=== PATIENT | male | born 1965 | race Hispanic/Latino ===

== ENCOUNTER 2017-10-27 13:17 | Inpatient (IN) | payer OTHER ==
[~2017-10-27] VITALS: Ht 170.2 cm; Wt 69.9 kg
[2017-10-27] MEDS ORDERED: ONDANSETRON HCL INJ 2 MG/ML VIAL IV STA (13:19)
[2017-10-27] MEDS ORDERED: SODIUM CHLORIDE 0.9% 1000ML 1,000 ML IV STA (13:19)
[2017-10-27] MEDS ORDERED: ASPIRIN 81 MG CHEW TAB PO ONE ×2 (13:30→18:00)
[2017-10-27] MEDS ORDERED: INSULIN REGULAR, HUMAN 100 UNIT/1 ML 3ML VIAL SQ ONE (13:45)
[2017-10-27 13:53] LABS: BASOPHILS # (AUTO) 0.1 (0.0-0.1); BASOPHILS % 0.5 % (0.0-1.0); EOSINOPHILS # (AUTO) 0.1 (0.0-0.4); EOSINOPHILS % 0.7 % (0.0-6.0); HEMATOCRIT 43.3 % (38.2-49.6); HEMOGLOBIN 15.5 g/dL (14.0-18.0); LYMPHOCYTES # (AUTO) 2.6 (1.0-3.2); LYMPHOCYTES % 20.4 % (18.0-39.1); MEAN CORPUSCULAR HGB CONC 35.8 g/dL (31-35); MEAN CORPUSCULAR VOLUME 92.3 fL (81-99); MONOCYTES # (AUTO) 0.8 (0.2-0.8); NEUTROPHILS # (AUTO) 9.2 (2.1-6.9); NEUTROPHILS % 72.2 % (38.7-80.0); PLATELET COUNT 164 x10e3/uL (140-360); RED BLOOD COUNT 4.69 x10e6/uL (4.3-5.7)
[2017-10-27 14:14] LABS: B-TYPE NATRIURETIC PEPTIDE2 16.8 pg/mL (0-100)
[2017-10-27 14:19] LABS: INR 1.08; PARTIAL THROMBOPLASTIN TIME 27.7 seconds (23.8-35.5); PROTHROMBIN TIME 13.2 seconds (11.9-14.5)
[2017-10-27 14:29] LABS: ALANINE AMINOTRANSFERASE 28 IU/L (0-55); ALBUMIN 3.9 g/dL (3.5-5.0); ALBUMIN/GLOBULIN RATIO 1.1 (0.8-2.0); ALKALINE PHOSPHATASE 155 IU/L (40-150); AMYLASE 31 U/L (25-125); ANION GAP 16.3 mmol/L (8-16); BLOOD UREA NITROGEN 19 mg/dL (7-26); BUN/CREATININE RATIO 20 (6-25); CALCIUM 9.8 mg/dL (8.4-10.2); CARBON DIOXIDE 24 mmol/L (22-29); CHLORIDE 102 mmol/L (98-107); CREATINE KINASE 44 IU/L (30-200); CREATININE, SERUM 0.96 mg/dL (0.72-1.25); EST GLOMERULAR FILTRATION RATE > 60 ML/MIN (60-); GLUCOSE 294 mg/dL (74-118); LIPASE 18 U/L (8-78); POTASSIUM 4.3 mmol/L (3.5-5.1); SODIUM 138 mmol/L (136-145)
[2017-10-27 14:36] LABS: BILIRUBIN,URINE NEGATIVE (NEGATIVE); CLARITY,URINE SL CLOUDY (CLEAR); COLOR,URINE YELLOW (YELLOW); KETONES,URINE NEGATIVE (NEGATIVE); LEUKOCYTE ESTERASE ,URINE NEGATIVE (NEGATIVE); NITRITE,URINE NEGATIVE (NEGATIVE); PROTEIN,URINE DIPSTICK 2+ (NEGATIVE); URINE UROBILINOGEN 1 mg/dL (0.2 - 1)
[2017-10-27] MEDS ORDERED: DIATRIZOATE MEGL/DIATRIZOA SOD 30 ML BTL PO ONE (14:43)
[2017-10-27 14:49] LABS: THYROID STIMULATING HORMONE 1.261 uIU/mL (0.350-4.940)
[2017-10-27 14:53] LABS: EPITHELIAL CELLS,URINE MODERATE /LPF
--- NOTE | 2017-10-27 15:04 | Diagnostic Imaging Report ---
EXAMINATION: CHEST SINGLE (PORTABLE) INDICATION: Pain, fever COMPARISON: None FINDINGS: TUBES and LINES: None. LUNGS: Lungs are well inflated. Lungs are clear. There is no evidence of pneumonia or pulmonary edema. PLEURA: No pleural effusion or pneumothorax. HEART AND MEDIASTINUM: The cardiomediastinal silhouette is unremarkable. BONES AND SOFT TISSUES: No acute osseous lesion. Soft tissues are unremarkable. UPPER ABDOMEN: No free air under the diaphragm. IMPRESSION: No acute thoracic abnormality. Signed by: Dr. Srinivasa Orellana M.D. on 10/27/2017 3:01 PM
[2017-10-27] MEDS ORDERED: DONNATAL/LIDOCAINE/MAALOX 30 ML SUSP PO SCH (15:15)
[2017-10-27] MEDS ORDERED: LIDOCAINE VISC 2% SOLN 15 ML UDC ONE (15:57)
[2017-10-27] MEDS ORDERED: BELLADONNA ALK/PHENOBARBITAL 5 ML UDC ONE (15:57)
--- NOTE | 2017-10-27 17:09 | Diagnostic Imaging Report ---
EXAM: CT Abdomen and Pelvis WITH contrast INDICATION: Diverticulitis COMPARISON: None. TECHNIQUE: Abdomen and pelvis were scanned utilizing a multidetector helical scanner from the lung base to the pubic symphysis after administration of IV contrast. Coronal and sagittal reformations were obtained. Routine protocol was performed. Scan was performed when during portal venous phase. IV CONTRAST: 100 mL of Isovue-370 ORAL CONTRAST: Water RADIATION DOSE: Total DLP: 341.92 mGy*cm Estimated effective dose: (DLP x 0.015 x size factor) mSv COMPLICATIONS: None FINDINGS: LINES and TUBES: None. LOWER THORAX: Unremarkable HEPATOBILIARY: No focal hepatic lesions. No biliary ductal dilation. GALLBLADDER: No radio-opaque stones or sludge. No wall thickening. SPLEEN: No splenomegaly. PANCREAS: No focal masses or ductal dilatation. ADRENALS: Large heterogeneous in density septated cystic right adrenal mass measuring 6.4 cm in largest dimension abutting the posterior wall of the intrahepatic IVC, with mass effect on the upper pole of the right kidney and minimal mass effect on the most distal right renal vein . The left adrenal gland is normal. KIDNEYS/URETERS: Kidneys enhance symmetrically. No hydronephrosis. No cystic or solid mass lesions. No stones. GI TRACT: No abnormal distention, wall thickening, or evidence of bowel obstruction. Appendix is mildly prominent but there are no other findings to suggest appendicitis. PELVIC ORGANS/BLADDER: Unremarkable. LYMPH NODES: No lymphadenopathy. VESSELS: Unremarkable. PERITONEUM / RETROPERITONEUM: No free air or fluid. BONES: Unremarkable. SOFT TISSUES: Unremarkable. IMPRESSION: 1. Right adrenal cystic mass measuring 6.4 cm in largest dimension has a broad differential diagnosis including lymphangiomatous cyst, hemangioma, involving hemorrhagic adrenal mass, less likely a metastasis, pheochromocytoma or adrenal cortical carcinoma. Regardless of the differential, a oncologic surgical consult is recommended Signed by: Dr. Srinivasa Orellana M.D. on 10/27/2017 5:05 PM
[2017-10-27] MEDS ORDERED: NITROGLYCERIN 0.4 MG SUBL SL PRN (18:00)
[2017-10-27] MEDS ORDERED: DEXTROSE 50% SYRINGE 50 ML IV PRN (18:00)
[2017-10-27] MEDS ORDERED: ONDANSETRON HCL INJ 2 MG/ML VIAL IV PRN (18:00)
[2017-10-27] MEDS ORDERED: SODIUM CHLORIDE FLUSH 10 ML SYR INJ PRN (18:00)
[2017-10-27] MEDS ORDERED: SODIUM CHLORIDE 0.9% 50ML 50 ML ONE (18:14)
[2017-10-27] MEDS ORDERED: IOPAMIDOL 370 MG/ML 200 ML INFUS..BTL INJ ONE (18:14)
[2017-10-27] MEDS: FAMOTIDINE 20 MG TAB PO SCH (18:58)
[2017-10-27] MEDS ORDERED: METFORMIN HCL500 MG PO (20:03)
[2017-10-27] MEDS ORDERED: METHOCARBAMOL500 MG PO (20:03)
[2017-10-27] MEDS ORDERED: LANTUS 3ML100 UNITS/ SQ ×2 (20:03)
[2017-10-27] MEDS ORDERED: GLYBURIDE5 MG PO (20:03)
[2017-10-27 20:51] VITALS: BP 121/79
[2017-10-27] MEDS: INSULIN REGULAR, HUMAN 100 UNIT/1 ML 3ML VIAL SQ SCH (21:00)
[2017-10-27 22:52] VITALS: BP 121/79
[2017-10-28] VITALS (7 sets, daily range): BP systolic 92–141; BP diastolic 50–88
[2017-10-28] MEDS: FAMOTIDINE 20 MG TAB PO SCH (05:38)
[2017-10-28 08:00] LABS: CREATINE KINASE MB 0.9 ng/mL (0-5.0)
[2017-10-28 08:21] LABS: CHOL/HDL RATIO 4.3 (3.9-4.7)
[2017-10-28] MEDS: ASPIRIN 81 MG ENTERIC COATED PO SCH (08:34)
[2017-10-28] MEDS: PANTOPRAZOLE SOD 40 MG TABEC PO SCH (08:35)
[2017-10-28] MEDS: INSULIN REGULAR, HUMAN 100 UNIT/1 ML 3ML VIAL SQ SCH ×4 (08:36→21:00)
--- NOTE | 2017-10-28 08:58 | History and Physical ---
PRIMARY CARE PHYSICIAN: CHIEF COMPLAINT: Abdominal pain. HISTORY OF PRESENT ILLNESS: This is a 52-year-old man who developed epigastric discomfort, described as pressure, radiating up the chest to the throat and then ears, unable to see his primary care doctor, therefore came to the hospital. Here, patient was evaluated in the emergency room. Cardiac enzyme was negative. CT scan showed incidental finding of right adrenal mass. Patient is admitted for further evaluation and management. PAST MEDICAL HISTORY: Diabetes mellitus type 2. PAST SURGICAL HISTORY: Knee, finger, and elbow. ALLERGIES: PER ELECTRONIC MEDICAL RECORD. FAMILY/SOCIAL HISTORY: Patient is . He has 1 child. No alcohol or illicits. He smokes about 2 cigarettes per day. MEDICATIONS: Per electronic medical record. REVIEW OF SYSTEMS: Denies any dizziness, fever, chills, sweats, nausea, vomiting, diarrhea. PHYSICAL EXAMINATION: VITAL SIGNS: Have been reviewed. GENERAL APPEARANCE: Tired-appearing man resting in bed. HEENT: Anicteric. CARDIOVASCULAR: Normal S1 and S2. LUNGS: Moderate breath sounds. ABDOMEN: Soft, nondistended. He has epigastric tenderness. EXTREMITIES: No edema or calf tenderness. NEUROLOGICAL: Alert and appropriate. Moving all extremities. SKIN: Dry. PSYCHIATRIC: Flat affect. LABS: Reviewed. MEDICATIONS: Reviewed. ASSESSMENT AND PLAN: A 52-year-old man. 1. Epigastric discomfort. May have gastritis or gastrointestinal related disease. Will put him on pantoprazole and sucralfate. He will need endoscopy at some point. 2. Rule out acute coronary syndrome. His electrocardiogram has been reviewed and is normal sinus rhythm. He does have periods of hypotension. His cardiac enzymes were negative x3. Will obtain a lipid panel. 3. Right adrenal mass. This is incidental finding. Patient is asymptomatic in that regard. Will obtain a metanephrine. Consult endocrinology, and may need surgical resection of this mass, but for this endocrinology needs to evaluate things like pheochromocytoma or other pathology. 4. Dyspepsia. Use proton pump inhibitor. 5. Diabetes mellitus type 2. Obtain hemoglobin A1c and lipid panel. 6. Prophylaxis. Use sequential compression devices and proton pump inhibitor. Job#: [id number]
[2017-10-28] MEDS: SUCRALFATE 1 GM TAB PO SCH ×3 (12:34→20:51)
--- NOTE | 2017-10-28 13:01 | Consultation ---
DATE OF CONSULTATION: October 28, 2017 CHIEF COMPLAINT: Abdominal pain. HISTORY OF PRESENT ILLNESS: This patient is a 52-year-old male who was in good health until approximately a week ago when he experienced epigastric pain radiating up the chest and right neck and face area. The patient has also intractable vomiting. He had no history of fatty food intolerance or diarrhea or chills. PAST MEDICAL HISTORY: Positive for diabetes type 2. SURGICAL HISTORY: Positive for left upper extremity and left knee surgery. ALLERGIES: No drug allergies. SOCIAL HABITS: He is a smoker but denied alcohol abuse. REVIEW OF SYSTEMS: No chest pain or shortness of breath or cough at present time. No back pain. PHYSICAL EXAMINATION VITAL SIGNS: Stable. Afebrile. GENERAL: He is awake, alert, in no apparent distress. HEENT: Sclera anicteric. NECK: Supple. LUNGS: Clear. HEART: Regular rate and rhythm. ABDOMEN: Soft with mild guarding in epigastrium with no rebound tenderness. EXTREMITIES: Without cyanosis, edema. LABS: The patient's white cell count is 13 with hemoglobin of 15 and creatinine of 0.9. Alkaline phosphatase 155, bilirubin of 0.8. CT of the abdomen revealed a 6.4 cm septated cystic right adrenal mass. No gallstones or bowel thickening. ASSESSMENT: Right renal mass of unknown etiology. PLAN: Continue workup for pheo and neoplastic etiology. Will follow patient and intervention as indicated. Job#: [id number] ALFONSO
--- NOTE | 2017-10-28 14:12 | Consultation ---
DATE OF CONSULTATION: ENDOCRINE CONSULTATION NO DICTATION, LENGTH 0:6 Job#: [id number] DOMENIC
[2017-10-28 16:49] LABS: FREE T4 (FREE THYROXINE) 0.87 ng/dL (0.9-1.8); THYROID STIMULATING HORMONE 1.485 uIU/mL (0.350-4.940)
[2017-10-28] MEDS ORDERED: INSULIN DETEMIR 100 UNIT/ML PEN SQ SCH (21:00)
[2017-10-29] VITALS (7 sets, daily range): BP systolic 106–126; BP diastolic 65–78
[2017-10-29] MEDS: SUCRALFATE 1 GM TAB PO SCH ×4 (09:05→20:42)
[2017-10-29] MEDS: ASPIRIN 81 MG ENTERIC COATED PO SCH (09:05)
[2017-10-29] MEDS: PANTOPRAZOLE SOD 40 MG TABEC PO SCH (09:05)
[2017-10-29] MEDS: INSULIN REGULAR, HUMAN 100 UNIT/1 ML 3ML VIAL SQ SCH ×3 (09:11→17:59)
--- NOTE | 2017-10-29 13:03 | Progress Note ---
DATE: October 29, 2017 MEDICINE PROGRESS NOTE TIME OF SERVICE: 7:30 a.m. SUBJECTIVE: Overnight no events. REVIEW OF SYSTEMS: Denies any dizziness, chest pain. VITAL SIGNS: Reviewed. PHYSICAL EXAMINATION GENERAL APPEARANCE: A tired-appearing man resting in bed. HEENT: Anicteric. CARDIOVASCULAR: Normal S1/S2. No murmurs. ABDOMEN: Soft. Mild tenderness in the epigastrium. Flanks nontender. EXTREMITIES: No edema. SKIN: Dry. PSYCHIATRIC: Flat affect. LABS: Reviewed. MEDICATIONS: Reviewed. ASSESSMENT: A 52-year-old man. 1. Epigastric discomfort. 2. Right adrenal mass. 3. Dyspepsia. 4. Diabetes mellitus type 2. PLAN 1. Hemoglobin A1c 10.5, LDL 122, triglyceride 86. 2. Plasma metanephrine and normetanephrines are pending. 3. Follow up endocrinology recommendation. 4. Surgery on board. Job#: [id number] EV
[2017-10-29] MEDS: GLIMEPIRIDE 2 MG TAB PO SCH (17:59)
[2017-10-29] MEDS ORDERED: INSULIN DETEMIR 100 UNIT/ML PEN SQ SCH (21:00)
[2017-10-30] VITALS (9 sets, daily range): BP systolic 113–123; BP diastolic 58–66
[2017-10-30] MEDS: INSULIN REGULAR, HUMAN 100 UNIT/1 ML 3ML VIAL SQ SCH ×5 (07:30→20:30)
[2017-10-30 07:50] LABS: BASOPHILS # (AUTO) 0.1 (0.0-0.1); BASOPHILS % 0.6 % (0.0-1.0); EOSINOPHILS # (AUTO) 0.1 (0.0-0.4); EOSINOPHILS % 0.8 % (0.0-6.0); HEMOGLOBIN 13.8 g/dL (14.0-18.0); LYMPHOCYTES # (AUTO) 1.7 (1.0-3.2); MEAN CORPUSCULAR HEMOGLOBIN 33.4 pg (28-32); MEAN CORPUSCULAR HGB CONC 35.4 g/dL (31-35); MEAN CORPUSCULAR VOLUME 94.4 fL (81-99); MONOCYTES # (AUTO) 0.5 (0.2-0.8); MONOCYTES % 6.4 % (4.4-11.3); NEUTROPHILS # (AUTO) 6.1 (2.1-6.9); PLATELET COUNT 186 x10e3/uL (140-360); RED BLOOD COUNT 4.13 x10e6/uL (4.3-5.7); RED CELL DISTRIBUTION WIDTH 12.1 % (11.7-14.4)
[2017-10-30] MEDS: GLIMEPIRIDE 2 MG TAB PO SCH ×2 (08:11→16:49)
[2017-10-30] MEDS: SUCRALFATE 1 GM TAB PO SCH ×4 (08:11→21:00)
[2017-10-30] MEDS: ASPIRIN 81 MG ENTERIC COATED PO SCH (08:11)
[2017-10-30] MEDS: PANTOPRAZOLE SOD 40 MG TABEC PO SCH (08:11)
[2017-10-30] MEDS ORDERED: INSULIN DETEMIR 100 UNIT/ML PEN SQ SCH (21:00)
[2017-10-31] VITALS: BP 120/58
[2017-10-31 04:00] VITALS: BP 119/56
[2017-10-31 07:53] VITALS: BP 110/60
[2017-10-31] MEDS: SUCRALFATE 1 GM TAB PO SCH ×3 (09:07→16:30)
[2017-10-31] MEDS: PANTOPRAZOLE SOD 40 MG TABEC PO SCH (09:07)
[2017-10-31] MEDS: GLIMEPIRIDE 2 MG TAB PO SCH ×2 (09:12→17:00)
[2017-10-31] MEDS: ASPIRIN 81 MG ENTERIC COATED PO SCH (09:12)
[2017-10-31] MEDS: INSULIN REGULAR, HUMAN 100 UNIT/1 ML 3ML VIAL SQ SCH ×3 (09:13→15:29)
[2017-10-31 10:23] VITALS: BP 110/60
[2017-10-31 11:49] VITALS: BP 120/68
[2017-10-31 15:56] VITALS: BP 114/62
[2017-10-31] MEDS ORDERED: AMARYL4 MG PO (17:04)
--- NOTE | 2017-11-01 07:13 | Progress Note ---
DATE: October 30, 2017 TIME OF SERVICE: 7:00 a.m. PROGRESS NOTE Overnight, no events. REVIEW OF SYSTEMS: Denies any dizziness. PHYSICAL EXAMINATION VITAL SIGNS: Reviewed. GENERAL: A tired-appearing man resting in bed. HEENT: Anicteric. CARDIOVASCULAR: Normal S1/S2. Without murmurs. ABDOMEN: Soft, nontender. EXTREMITIES: No edema. SKIN: Dry. PSYCHIATRIC: Normal affect. LABS: Reviewed. MEDICATIONS: Reviewed. ASSESSMENT: A 52-year-old man. 1. Epigastric discomfort. 2. Right adrenal mass. 3. Dyspepsia. 4. Diabetes mellitus, type 2. Hemoglobin A1c 10.5, low-density lipoprotein 122. PLAN 1. Follow up metanephrines. 2. Continue pain control. 3. Follow up with Dr. Skelton and surgical team. Job#: [id number] CQ
--- NOTE | 2017-11-01 11:13 | Discharge Summary ---
PRINCIPAL DIAGNOSES 1. Right adrenal mass. 2. Epigastric discomfort. 3. Dyspepsia. 4. Diabetes mellitus, type 2. Hemoglobin A1c 10.5, low-density lipoprotein 122, triglyceride 86. SECONDARY DIAGNOSIS: Diabetes mellitus, type 2. CHIEF COMPLAINT: Abdominal pain. HISTORY OF PRESENT ILLNESS: A 52-year-old man with abdominal pain. Please refer to H and P for further details. HOSPITAL COURSE: Patient with the right adrenal mass. Endocrinology studies were initiated. Results are still pending. He had dyspepsia, diabetes mellitus, type 2. Surgery was deferred until the endocrinology studies were completed. Metanephrines and normetanephrines. He will follow up outpatient for further care. DISCHARGE MEDICATION: Per electronic medical record. FOLLOWUP 1. With primary care doctor in [address] Skelton in 1 week and possible surgical team thereafter. WILLY ALBERTS MD Job#: [id number] CQ
--- OUTSIDE RECORDS SUMMARY | 2018-02-12 13:11 | XMS REPORT ---
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 Allergies, Adverse Reactions, Alerts This patient has no known allergies or adverse reactions. Medications This patient has no known medications. Results Test Description Test Time Test Comments Text Results Atomic Results Result Comments CHEST SINGLE (PORTABLE) 2017-11-24 13:56:[address] [address] Patient Name: SRINIVASA DÍAZ MR #: [id number] : 1965 Age/Sex: 52/M Req #: [id number] Adm Physician: Ordered by: TRINITY DELGADO SILVERWARE CLEANER Report #: [id number] Location: ER Room/Bed: ___ Procedure: [id number] DX/CHEST SINGLE (PORTABLE) Exam Date: 11/24/17 Exam Time: 1335 REPORT STATUS: Signed EXAMINATION: CHEST SINGLE (PORTABLE) INDICATION: S chest pain, hypertension COMPARISON: Chest x-ray 10/27/2017 FINDINGS: AP view TUBES and LINES: None. LUNGS: Lungs are not well inflated. Lungs are clear. There is no evidence of pneumonia or pulmonary edema. PLEURA: No pleural effusion or pneumothorax. HEART AND MEDIASTINUM: The cardiomediastinal silhouette is unremarkable. BONES AND SOFT TISSUES: No acute osseous lesion. Soft tissues are unremarkable. UPPER ABDOMEN: No free air under the diaphragm. IMPRESSION: No acute thoracic abnormality. Signed by: Dr. Ten Sanon M.D. on 11/24/2017 1:57 PM Dictated By: TEN SANON MD [id number] Transcribed By: KATLYN on 11/24/17 [id number] COPY TO: TRINITY DELGADO SILVERWARE CLEANER CT ABDOMEN/PELVIS W 2017-10-27 16:48:00 [place] [address] Patient Name: SRINIVASA DÍAZ MR #: [id number] : 1965 Age/Sex: 52/M Req #: [id number] Adm Physician: Ordered by: TUAN MCCLURE NP Report #: [id number] Location: ER Room/Bed: Procedure: [id number] CT/CT ABDOMEN/PELVIS W Exam Date: 10/27/17 Exam Time: 1558 REPORT STATUS: Signed EXAM: CT Abdomen and Pelvis WITH contrast INDICATION: Diverticulitis COMPARISON: None. TECHNIQUE: Abdomen and pelvis were scanned utilizing a multidetector helical scanner from the lung base to the pubic symphysis after administration of IV contrast. Coronal and sagittal reformations were obtained. Routine protocol was performed. Scan was performed when during portal venous phase. IV CONTRAST: 100 mL of Isovue-370 ORAL CONTRAST: Water RADIATION DOSE: Total DLP: 341.92 mGy*cm Estimated effective dose: (DLP x 0.015 x size factor) mSv COMPLICATIONS: None FINDINGS: LINES and TUBES: None. LOWER THORAX: Unremarkable HEPATOBILIARY: No focal hepatic lesions. No biliary ductal dilation. GALLBLADDER: No radio-opaque stones or sludge. No wall thickening. SPLEEN : No splenomegaly. PANCREAS: No focal masses or ductal dilatation. ADRENALS: Large heterogeneous in density septated cystic right adrenal mass measuring 6.4 cm in largest dimension abutting the posterior wall of the intrahepatic IVC, with mass effect on the upper pole of the right kidney and minimal mass effect on the most distal right renal vein . The left adrenal gland is normal. KIDNEYS/URETERS: Kidneys enhance symmetrically. No hydronephrosis. No cystic or solid mass lesions. No stones. GI TRACT: No abnormal distention, wall thickening, or evidence of bowel obstruction. Appendix is mildly prominent but there are no other findings to suggest appendicitis. PELVIC ORGANS/BLADDER: Unremarkable. LYMPH NODES: No lymphadenopathy. VESSELS: Unremarkable. PERITONEUM / RETROPERITONEUM: No free air or fluid. BONES: Unremarkable. SOFT TISSUES: Unremarkable. IMPRESSION: 1. Right adrenal cystic mass measuring 6.4 cm in largest dimension has a broad differential diagnosis including lymphangiomatous cyst, hemangioma, involving hemorrhagic adrenal mass, less likely a metastasis, pheochromocytoma or adrenal cortical carcinoma. Regardless of the differential, a oncologic surgical consult is recommended Signed by: Dr. Srinivasa Orellana M.D. on 10/27/2017 5:05 PM Dictated By: SRINIVASA BENNETT MD 04 Transcribed By: KATLYN on 10/27/171704 COPY TO: TUAN MCCLURE NP CHEST SINGLE (PORTABLE) 2017-10-27 14:51:00 [place] [address] Patient Name: SRINIVASA DÍAZ MR #: [id number] : 1965 Age/Sex: 52/M Req #: [id number] Adm Physician: Ordered by: TUAN MCCLURE NP Report #: [id number] Location: ER Room/Bed: ___ Procedure: [id number] DX/CHEST SINGLE (PORTABLE) Exam Date: 10/27/17 Exam Time: 1405 REPORT STATUS: Signed EXAMINATION: CHEST SINGLE (PORTABLE) INDICATION: Pain, fever COMPARISON: None FINDINGS: TUBES and LINES: None. LUNGS: Lungs are well inflated. Lungs are clear. There is no evidence of pneumonia or pulmonary edema. PLEURA: No pleural effusion or pneumothorax. HEART AND MEDIASTINUM: The cardiomediastinal silhouette is unremarkable. BONES AND SOFT TISSUES: No acute osseous lesion. Soft tissues are unremarkable. UPPER ABDOMEN: No free air under the diaphragm. IMPRESSION: No acute thoracic abnormality. Signed by: Dr. Srinivasa Orellana M.D. on 10/27/2017 3:01 PM Dictated By: SRINIVASA BENNETT MD 1501 COPY TO: TUAN MCCLURE NP
== END 2017-10-31 17:36 | disposition home or self-care (01) | DRG 645 ==
LOC: ER 13:17 → ERHOLD 18:23 → MED/SURG3 19:32 → MED/SURG 10-29 22:38 → MED/SURG3 10-29 22:45 → MED/SURG 10-29 23:54
PROVIDERS: ADMIT Internal Medicine; ATTEND Internal Medicine
DX: E27.9 Disorder of adrenal gland, unspecified (principal); R10.13 Epigastric pain; E11.65 Type 2 diabetes mellitus with hyperglycemia; Z79.4 Long term (current) use of insulin; N28.89 Other specified disorders of kidney and ureter; I20.9 Angina pectoris, unspecified
CPT/HCPCS: 36415; 71045; 74177; 80053; 80061; 81001; 82150; 82530; 82533; 82550; 82553; 82948; 83036; 83605; 83690; 83835; 83880; 84439; 84443; 84484; 84585; 85025; 85610; 85730; 87040; 87086; 93005; 93306; 99284; J2405; J7030; Q9967

== ENCOUNTER 2017-11-24 12:36 | Inpatient (IN) | payer SELFPAY ==
[~2017-11-24] VITALS: Ht 170.2 cm; Wt 75.8 kg
[~2017-11-24 12:36] MED LIST: AMARYL4 MG PO; GLYBURIDE5 MG PO; LANTUS 3ML100 UNITS/ SQ; METFORMIN HCL500 MG PO; METHOCARBAMOL500 MG PO
[2017-11-24] MEDS ORDERED: NIFEDIPINE 10 MG CAP PO STA (12:47)
[2017-11-24] MEDS ORDERED: HYDRALAZINE HCL 20 MG/ML VIAL IV STA (12:49)
[2017-11-24] MEDS ORDERED: ONDANSETRON HCL INJ 2 MG/ML VIAL IV PRN (13:00)
[2017-11-24] MEDS ORDERED: DIPHENHYDRAMINE HCL INJ 50 MG/ML VIAL IV PRN (13:00)
[2017-11-24] MEDS ORDERED: NITROGLYCERIN 2% OINT 1 GM PKT TOP ONE (13:00)
[2017-11-24 13:01] LABS: BASOPHILS # (AUTO) 0.1 (0.0-0.1); BASOPHILS % 0.6 % (0.0-1.0); EOSINOPHILS # (AUTO) 0.1 (0.0-0.4); EOSINOPHILS % 0.5 % (0.0-6.0); HEMATOCRIT 44.1 % (38.2-49.6); HEMOGLOBIN 16.6 g/dL (14.0-18.0); LYMPHOCYTES % 14.2 % (18.0-39.1); MEAN CORPUSCULAR HEMOGLOBIN 33.9 pg (28-32); MEAN CORPUSCULAR HGB CONC 37.6 g/dL (31-35); MEAN CORPUSCULAR VOLUME 90.2 fL (81-99); MONOCYTES # (AUTO) 0.8 (0.2-0.8); MONOCYTES % 5.5 % (4.4-11.3); NEUTROPHILS # (AUTO) 10.9 (2.1-6.9); NEUTROPHILS % 78.9 % (38.7-80.0); PLATELET COUNT 218 x10e3/uL (140-360); RED BLOOD COUNT 4.89 x10e6/uL (4.3-5.7); RED CELL DISTRIBUTION WIDTH 12.5 % (11.7-14.4)
[2017-11-24 13:10] LABS: INR 1.07; PROTHROMBIN TIME 13.1 seconds (11.9-14.5)
[2017-11-24 13:11] LABS: PARTIAL THROMBOPLASTIN TIME 36.3 seconds (23.8-35.5)
[2017-11-24 13:26] LABS: CREATINE KINASE MB 2.9 ng/mL (0-5.0)
--- NOTE | 2017-11-24 14:00 | Diagnostic Imaging Report ---
EXAMINATION: CHEST SINGLE (PORTABLE) INDICATION: \S\chest pain, hypertension COMPARISON: Chest x-ray 10/27/2017 FINDINGS: AP view TUBES and LINES: None. LUNGS: Lungs are not well inflated. Lungs are clear. There is no evidence of pneumonia or pulmonary edema. PLEURA: No pleural effusion or pneumothorax. HEART AND MEDIASTINUM: The cardiomediastinal silhouette is unremarkable. BONES AND SOFT TISSUES: No acute osseous lesion. Soft tissues are unremarkable. UPPER ABDOMEN: No free air under the diaphragm. IMPRESSION: No acute thoracic abnormality. Signed by: Dr. Quinton Owens M.D. on 11/24/2017 1:57 PM
[2017-11-24 14:04] LABS: ALBUMIN 4.3 g/dL (3.5-5.0); ANION GAP 18.7 mmol/L (8-16); CALCIUM 10.3 mg/dL (8.4-10.2); CREATININE, SERUM 1.34 mg/dL (0.72-1.25); POTASSIUM 4.7 mmol/L (3.5-5.1)
[2017-11-24] MEDS ORDERED: INSULIN REGULAR, HUMAN 100 UNIT/1 ML 3ML VIAL IV ONE (14:30)
[2017-11-24] MEDS ORDERED: SODIUM CHLORIDE 0.9% 1000ML 1,000 ML IV ONE (14:45)
[2017-11-24] MEDS ORDERED: ATENOLOL50 MG (15:18)
[2017-11-24] MEDS ORDERED: LOSARTAN POTAS100 MG PO (15:18)
[2017-11-24] MEDS ORDERED: SODIUM CHLORIDE 0.9% 1000ML 1,000 ML IV SCH (15:45)
[2017-11-24] MEDS ORDERED: DEXTROSE 50% SYRINGE 50 ML IV PRN (16:30)
[2017-11-24] MEDS: INSULIN REGULAR, HUMAN 100 UNIT/1 ML 3ML VIAL SQ SCH ×2 (16:30→21:00)
[2017-11-24] MEDS ORDERED: PHENOXYBENZAMINE PO SCH (17:00)
[2017-11-24 17:40] VITALS: BP 92/50
[2017-11-24 18:06] VITALS: BP 136/93
[2017-11-24] MEDS ORDERED: MORPHINE SULFATE 2 MG/ML SYR ONE (20:34)
[2017-11-24 20:55] VITALS: BP 86/51
[2017-11-24] MEDS: MORPHINE SULFATE 2 MG/ML SYR IV PRN (21:00)
[2017-11-25] VITALS (8 sets, daily range): BP systolic 81–151; BP diastolic 53–75
[2017-11-25 02:03] LABS: CREATINE KINASE MB 2.5 ng/mL (0-5.0)
[2017-11-25 03:07] LABS: CHOL/HDL RATIO 5.5 (3.9-4.7)
[2017-11-25] MEDS: MORPHINE SULFATE 2 MG/ML SYR IV PRN (06:00)
[2017-11-25] MEDS: INSULIN REGULAR, HUMAN 100 UNIT/1 ML 3ML VIAL SQ SCH ×2 (07:30→12:00)
[2017-11-25] MEDS: LOSARTAN POTASSIUM 100 MG TAB PO SCH (09:00)
[2017-11-25] MEDS ORDERED: PHENOXYBENZAMINE PO SCH (09:00)
[2017-11-25] MEDS: ATENOLOL 50 MG TAB PO SCH (09:00)
[2017-11-25 09:51] LABS: CREATINE KINASE MB 2.9 ng/mL (0-5.0)
[2017-11-25 14:21] LABS: FREE T4 (FREE THYROXINE) 1.1 ng/dL (0.9-1.8); THYROID STIMULATING HORMONE 2.25 uIU/mL (0.350-4.940)
[2017-11-25] MEDS: SODIUM CHLORIDE 0.9% 1000ML 1,000 ML IV SCH ×2 (14:44→23:59)
--- NOTE | 2017-11-25 15:22 | Consultation ---
DATE OF CONSULTATION: November 25, 2017 ENDOCRINE CONSULTATION HISTORY OF PRESENT ILLNESS: This is a 52-year-old gentleman who is known to me from his previous hospital admission. Patient has a huge adrenal mass, the pheochromocytoma. Patient was scheduled for surgery. He was seen in the office and his blood pressure was found to be significantly elevated. Patient was started on blood pressure medicines including the losartan, atenolol, and was advised to follow up. In the meantime, patient came to the emergency room with extreme dizziness, and his blood pressure was significantly elevated at 210/150. Patient is admitted into the hospital for further evaluation. Patient is also a known diabetic. He has multiple complications related to diabetes including diabetic sensorimotor neuropathy and has been on glimepiride and insulin. PHYSICAL EXAMINATION: GENERAL: Today the patient is alert, awake, a little bit apprehensive. He is thin-built. VITAL SIGNS: His heart rate is around 78. Blood pressure presently is around 93/54. CHEST: Bilateral vesicular breathing. He has mild bronchospasm. CARDIAC: There are 1st and 2nd heart sounds. There is no 3rd or 4th heart sound. Ejection sound grade 2/6. EXTREMITIES: Patient has evidence of diabetic sensorimotor neuropathy in both lower extremities. CLINICAL IMPRESSION: 1. Accelerated hypertension. 2. Adrenal mass, pheochromocytoma for surgery. 3. Diabetes mellitus type 2, uncontrolled with complications. The plan at this time is to control his blood pressure and start him on phenoxybenzamine 10 mg twice daily. IV fluids. Patient has been discussed with Dr. Cain, the general surgeon. Thanks for referring this patient. I will be following this patient with you. Job#: [id number] WINSTON
[2017-11-25] MEDS: INSULIN LISPRO 100 UNIT/1 ML 3ML VIAL SQ SCH ×2 (16:30→21:00)
[2017-11-25] MEDS: PHENOXYBENZAMINE PO SCH (17:00)
[2017-11-25] MEDS: GLIMEPIRIDE 2 MG TAB PO SCH (18:24)
[2017-11-25] MEDS: ACETAMINOPHEN 325 MG TAB PO PRN (23:59)
[2017-11-26] VITALS (7 sets, daily range): BP systolic 89–158; BP diastolic 51–76
[2017-11-26] MEDS: MORPHINE SULFATE 2 MG/ML SYR IV PRN ×3 (05:03→21:45)
[2017-11-26] MEDS: GLIMEPIRIDE 2 MG TAB PO SCH ×2 (08:30→17:22)
[2017-11-26] MEDS: INSULIN LISPRO 100 UNIT/1 ML 3ML VIAL SQ SCH ×4 (08:30→21:46)
[2017-11-26] MEDS: LOSARTAN POTASSIUM 100 MG TAB PO SCH (08:30)
[2017-11-26] MEDS: ATENOLOL 50 MG TAB PO SCH (08:31)
[2017-11-26] MEDS: PHENOXYBENZAMINE PO SCH (09:00)
[2017-11-26] MEDS: SODIUM CHLORIDE 0.9% 1000ML 1,000 ML IV SCH (10:15)
[2017-11-26] MEDS: DOXAZOSIN MESYLATE 2 MG TAB PO SCH (17:22)
--- NOTE | 2017-11-26 21:08 | Consultation ---
DATE OF CONSULTATION: November 25, 2017 CHIEF COMPLAINT: Hypertension. HISTORY OF PRESENT ILLNESS: The patient is a 52-year-old male with known right adrenal mass found during last hospitalization here several weeks ago. Urinary catecholamines worked up revealed elevation of metanephrines consistent with pheochromocytoma. Patient was found to have significant hypertensive episode with blood pressure above 200 systolic in emergency room setting that required urgent admission for control. REVIEW OF SYSTEMS: No chest pain or shortness of breath, no headaches. PAST MEDICAL HISTORY: Significant for hypertension and diabetes. SURGICAL HISTORY: Unremarkable. ALLERGIES: NO KNOWN DRUG ALLERGIES. SOCIAL HABITS: No smoking or alcohol abuse. PHYSICAL EXAMINATION: VITALS: Stable. He is afebrile. GENERAL: Patient is awake, alert, in no apparent distress. HEENT: Sclerae nonicteric. NECK: Supple. LUNGS: Clear. HEART: Is regular rate and rhythm. ABDOMEN: Soft and nontender and no masses palpable. EXTREMITIES: Without cyanosis or edema. LABORATORY DATA: White cell count 14,000, hemoglobin 16. Creatinine 1.3. Glucose is 350. Bilirubin is 2.3. Alkaline phosphatase 162. ASSESSMENT: Right renal mass with diagnosis of pheochromocytoma. PLAN: Right adrenalectomy with preoperative L5 blocking agents in place. Job#: [id number]
[2017-11-27] VITALS (9 sets, daily range): BP systolic 94–120; BP diastolic 50–62
[2017-11-27] MEDS: SODIUM CHLORIDE 0.9% 1000ML 1,000 ML IV SCH ×3 (00:10→14:58)
[2017-11-27] MEDS: GLIMEPIRIDE 2 MG TAB PO SCH ×2 (07:43→16:17)
[2017-11-27] MEDS: LOSARTAN POTASSIUM 100 MG TAB PO SCH (08:01)
[2017-11-27] MEDS: DOXAZOSIN MESYLATE 2 MG TAB PO SCH ×2 (08:01→16:18)
[2017-11-27] MEDS: ATENOLOL 50 MG TAB PO SCH (08:01)
[2017-11-27] MEDS: INSULIN LISPRO 100 UNIT/1 ML 3ML VIAL SQ SCH ×4 (08:07→21:00)
[2017-11-27] MEDS: MORPHINE SULFATE 2 MG/ML SYR IV PRN ×2 (14:53→19:39)
[2017-11-28] VITALS (8 sets, daily range): BP systolic 85–126; BP diastolic 53–62
[2017-11-28] MEDS: SODIUM CHLORIDE 0.9% 1000ML 1,000 ML IV SCH ×2 (01:00→12:15)
[2017-11-28] MEDS: MORPHINE SULFATE 2 MG/ML SYR IV PRN ×2 (02:06→10:56)
[2017-11-28] MEDS: GLIMEPIRIDE 2 MG TAB PO SCH ×2 (08:03→17:11)
[2017-11-28] MEDS: ATENOLOL 50 MG TAB PO SCH (08:03)
[2017-11-28] MEDS: DOXAZOSIN MESYLATE 2 MG TAB PO SCH ×2 (08:03→20:55)
[2017-11-28] MEDS: INSULIN LISPRO 100 UNIT/1 ML 3ML VIAL SQ SCH ×4 (08:22→20:18)
[2017-11-28] MEDS ORDERED: LOSARTAN POTASSIUM 100 MG TAB PO SCH (09:00)
[2017-11-29] VITALS: BP 99/57
[2017-11-29] MEDS: MORPHINE SULFATE 2 MG/ML SYR IV PRN ×5 (00:59→21:55)
[2017-11-29] MEDS: SODIUM CHLORIDE 0.9% 1000ML 1,000 ML IV SCH ×3 (01:00→18:15)
[2017-11-29 04:00] VITALS: BP 108/60
[2017-11-29 05:45] LABS: ANION GAP 11.8 mmol/L (8-16); BLOOD UREA NITROGEN 7 mg/dL (7-26); BUN/CREATININE RATIO 9 (6-25); CALCIUM 8.9 mg/dL (8.4-10.2); CARBON DIOXIDE 27 mmol/L (22-29); CHLORIDE 104 mmol/L (98-107); CREATININE, SERUM 0.76 mg/dL (0.72-1.25); EST GLOMERULAR FILTRATION RATE > 60 ML/MIN (60-); GLUCOSE 216 mg/dL (74-118); POTASSIUM 3.8 mmol/L (3.5-5.1); SODIUM 139 mmol/L (136-145)
[2017-11-29] MEDS: DOXAZOSIN MESYLATE 2 MG TAB PO SCH ×3 (06:12→21:55)
[2017-11-29] MEDS: INSULIN LISPRO 100 UNIT/1 ML 3ML VIAL SQ SCH ×4 (07:30→21:00)
[2017-11-29 08:10] VITALS: BP 105/55
[2017-11-29] MEDS: GLIMEPIRIDE 2 MG TAB PO SCH ×2 (08:26→16:01)
[2017-11-29] MEDS: LOSARTAN POTASSIUM 25 MG TAB PO SCH (08:26)
[2017-11-29] MEDS: ATENOLOL 50 MG TAB PO SCH (08:27)
[2017-11-29] MEDS ORDERED: LOSARTAN POTASSIUM 100 MG TAB PO SCH (09:00)
[2017-11-29 12:33] VITALS: BP 99/60
[2017-11-29 16:02] VITALS: BP 92/55
[2017-11-29 21:42] VITALS: BP 113/58
[2017-11-30] VITALS (7 sets, daily range): BP systolic 102–131; BP diastolic 58–71
[2017-11-30] MEDS: MORPHINE SULFATE 2 MG/ML SYR IV PRN (04:08)
[2017-11-30] MEDS: SODIUM CHLORIDE 0.9% 1000ML 1,000 ML IV SCH ×2 (04:47→15:38)
[2017-11-30] MEDS: DOXAZOSIN MESYLATE 2 MG TAB PO SCH ×3 (06:10→21:11)
[2017-11-30] MEDS: ATENOLOL 50 MG TAB PO SCH (07:25)
[2017-11-30] MEDS: INSULIN LISPRO 100 UNIT/1 ML 3ML VIAL SQ SCH ×4 (07:46→20:50)
[2017-11-30] MEDS: GLIMEPIRIDE 2 MG TAB PO SCH ×2 (07:46→16:40)
[2017-11-30] MEDS: LOSARTAN POTASSIUM 25 MG TAB PO SCH (08:25)
--- NOTE | 2017-11-30 17:20 | Progress Note ---
DATE: November 30, 2017 INTERNAL MEDICINE PROGRESS NOTE SUBJECTIVE: The patient is a 52-year-old male who came here with atypical chest pain and pheochromocytoma. Patient apparently is going to have surgery done by Dr. Cain. PHYSICAL EXAMINATION VITAL SIGNS: Blood pressure 131/71. Temperature 97.5. Heart rate 79 per minute. Respiratory rate 20 per minute. Oxygen saturation 98%. HEART: Regular rhythm. Normal S1, S2 sounds. LUNGS: Clear bilaterally. ABDOMEN: Soft. BLOOD WORK: We have BMP with sodium 139, potassium 3.8, chloride 104, CO2 27, BUN 7, creatinine 0.76. Glucose 216. On the CBC, white blood count 13,700, hemoglobin 16.6, hematocrit 44.1, platelet count 218,000. PT 13.1, INR 1.07, PTT 36.3. AST 23, ALT 33, total bilirubin 2.3, alkaline phosphatase 162. FINAL IMPRESSION 1. Pheochromocytoma. 2. Adrenal mass. 3. Hypertension. 4. Diabetes. 5. Atypical chest pain. PLAN OF TREATMENT: Continue with the current medication regimen. He is on glimepiride 4 mg twice a day, Zofran 4 mg IV q.4 h. as needed, sodium chloride 100 mL an hour, Tylenol 650 mg q.6 h. as needed, atenolol 25 mg daily, morphine 2 mg IV q.4 h. as needed, doxazosin 1 mg IV q.8 h. Monitor blood sugar a.c. and nightly. Losartan 25 mg daily. Benadryl 25 mg q.6 hours. Going to get also cardiology evaluation, but the troponins are negative times 3 and also EKG was completely unremarkable. Job#: [id number]
[2017-11-30] MEDS: ACETAMINOPHEN 325 MG TAB PO PRN (21:11)
[2017-12-01] VITALS (7 sets, daily range): BP systolic 109–157; BP diastolic 55–92
[2017-12-01] MEDS: SODIUM CHLORIDE 0.9% 1000ML 1,000 ML IV SCH ×3 (01:30→23:55)
[2017-12-01] MEDS: DOXAZOSIN MESYLATE 2 MG TAB PO SCH ×2 (05:59→16:45)
[2017-12-01] MEDS: INSULIN LISPRO 100 UNIT/1 ML 3ML VIAL SQ SCH ×4 (07:45→21:46)
[2017-12-01] MEDS: GLIMEPIRIDE 2 MG TAB PO SCH ×2 (07:56→16:45)
[2017-12-01] MEDS: LOSARTAN POTASSIUM 25 MG TAB PO SCH (08:32)
[2017-12-01] MEDS: ATENOLOL 50 MG TAB PO SCH (08:32)
--- NOTE | 2017-12-01 11:59 | Consultation ---
DATE OF CONSULTATION: December 01, 2017 CARDIOLOGY CONSULTATION REASON FOR CONSULTATION: Malignant hypertension, to aid in perioperative care. HISTORY: This 52-year-old gentleman was at this institution recently and diagnosed with right adrenal mass. He does have episodic abdominal pain, abdominal discomfort and his blood pressure goes very high. His blood pressure can go as high as 210/150. He came to the emergency room and was admitted. Seen by Dr. Skelton on November 25, 2017. Please refer to his consult. Recommended patient to be on phenoxybenzamine 10 mg twice a day. His blood pressure is still variable. I came to see the patient. His blood pressure today is 150/70. He is diabetic for a few years. He denied having any anginal chest pain. He does have this episodic chest pressure, chest tightness, palpitations, not feeling well, severe abdominal discomfort. His blood pressure goes very up and he feels very flushed. REVIEW OF SYSTEMS: Unremarkable with the exception of the above issue. PAST MEDICAL HISTORY 1. Diabetes mellitus. 2. Pheochromocytoma recently diagnosed by Dr. Skelton. 3. Several joint surgeries. FAMILY HISTORY: No family history of premature coronary artery disease. SOCIAL HISTORY: He is nonsmoker. No alcohol drinker. He is . PHYSICAL EXAMINATION VITALS: Height of 5 feet 7 inches, weight of 157 pounds. Blood pressure 150/70. Heart rate of 90. Respiratory rate of 18. Afebrile. HEENT: Pupils are reactive. NECK: No elevation of jugular venous pulsation. No bruit. CHEST: Clear to auscultation and percussion. HEART: PMI at 5th left intercostal space. Normal 1st and 2nd heart sounds. ABDOMEN: Soft. EXTREMITIES: No cyanosis. No clubbing. No edema. NEUROLOGIC: Nonfocal. LAB DATA: Sodium 139. Potassium 3.8. BUN of 7 and creatinine 0.8. Glucose of 216. White blood cell count of 13.7, hemoglobin 16.6, hematocrit 44%, platelet count of 218,000. TSH of 225. Triglycerides showed 174, cholesterol 215, HDL of 39, LDL of 141. Echocardiogram done in the last month or so showed ejection fraction of 65% to 70%. IMAGING: Chest x-ray showed no acute changes. ALLERGIES. None. CURRENT MEDICATIONS: Losartan, atenolol, Amaryl, Lantus insulin, metformin, phenoxybenzamine not started and cannot be found in the hospital. IMPRESSION AND PLAN 1. Diabetic patient. 2. Pheochromocytoma. 3. Uncontrolled hypertension. I am not versed in the treatment of pheochromocytoma. I will leave that up to the endocrine service. The care was discussed with the nursing tracer bullet section supervisor conductor sleeping car. Discussed with the pharmacy to get the phenoxybenzamine / iv regitine both are not available in pharmacy Will discuss with MD's. Probably this patient will benefit from a higher care in another institution. Job#: [id number] ANISA
--- NOTE | 2017-12-01 16:14 | Progress Note ---
DATE: December 01, 2017 INTERNAL MEDICINE PROGRESS NOTE SUBJECTIVE: The patient is doing well. No significant complaints. PHYSICAL EXAMINATION HEART: Regular rhythm. Normal S1, S2 sounds. LUNGS: Clear bilaterally. ABDOMEN: Soft. LABS: On the BMP, sodium 139, potassium 3.8, chloride 104, CO2 27, BUN 7, creatinine 0.76, glucose 216. On the CBC, white blood count 13,300, hemoglobin 16.6, hematocrit 44.1, platelet count 218,000. PT 13.1, INR 1.07, PTT 36.3. AST 23, ALT 33, total bilirubin 2.3, alkaline phosphatase 162. FINAL IMPRESSION 1. Adrenal mass, most likely pheochromocytoma. 2. Uncontrolled diabetes mellitus, type 2. 3. Hypertension. PLAN OF TREATMENT: Continue sodium chloride 100 mL an hour, Tylenol 650 mg q.6 h. as needed, Benadryl 25 mg q.6 h. as needed for itching, Zofran 4 mg IV q.4 h. as needed, glimepiride 4 mg twice a day, atenolol 25 mg daily, morphine 2 mg IV q.4 h. as needed, losartan 25 mg daily. Continue doxazosin 2 mg twice a day. Tentative surgery tomorrow pending clearance by inspector receiving and stop attacher. Job#: [id number]
[2017-12-02] VITALS (40 sets, daily range): BP systolic 94–148; BP diastolic 52–73
[2017-12-02 04:42] LABS: BASOPHILS % 0.4 % (0.0-1.0); EOSINOPHILS # (AUTO) 0.1 (0.0-0.4); EOSINOPHILS % 1.2 % (0.0-6.0); HEMATOCRIT 31.7 % (38.2-49.6); HEMOGLOBIN 11.4 g/dL (14.0-18.0); LYMPHOCYTES # (AUTO) 1.9 (1.0-3.2); LYMPHOCYTES % 27.6 % (18.0-39.1); MEAN CORPUSCULAR HEMOGLOBIN 33.5 pg (28-32); MEAN CORPUSCULAR VOLUME 93.2 fL (81-99); MONOCYTES # (AUTO) 0.5 (0.2-0.8); NEUTROPHILS # (AUTO) 4.3 (2.1-6.9); NEUTROPHILS % 63.5 % (38.7-80.0); PLATELET COUNT 182 x10e3/uL (140-360); RED CELL DISTRIBUTION WIDTH 12.1 % (11.7-14.4)
[2017-12-02] MEDS: SODIUM CHLORIDE 0.9% 1000ML 1,000 ML IV SCH ×2 (05:29→18:30)
[2017-12-02] MEDS: INSULIN LISPRO 100 UNIT/1 ML 3ML VIAL SQ SCH ×5 (07:30→23:55)
[2017-12-02] MEDS: GLIMEPIRIDE 2 MG TAB PO SCH ×2 (08:00→17:00)
[2017-12-02] MEDS: LOSARTAN POTASSIUM 25 MG TAB PO SCH (09:00)
[2017-12-02] MEDS: ATENOLOL 50 MG TAB PO SCH (09:00)
[2017-12-02] MEDS: DOXAZOSIN MESYLATE 2 MG TAB PO SCH ×2 (09:16→17:00)
[2017-12-02 09:53] LABS: ANION GAP 10.7 mmol/L (8-16); BLOOD UREA NITROGEN 10 mg/dL (7-26); BUN/CREATININE RATIO 13 (6-25); CALCIUM 8.9 mg/dL (8.4-10.2); CARBON DIOXIDE 26 mmol/L (22-29); CHLORIDE 106 mmol/L (98-107); CREATININE, SERUM 0.77 mg/dL (0.72-1.25); EST GLOMERULAR FILTRATION RATE > 60 ML/MIN (60-); GLUCOSE 210 mg/dL (74-118); POTASSIUM 3.7 mmol/L (3.5-5.1); SODIUM 139 mmol/L (136-145)
[2017-12-02] MEDS ORDERED: BUPIVACAINE 0.5%/EPI 30 ML SDV INJ ONE (09:58)
[2017-12-02] MEDS ORDERED: HEPARIN SOD/SOD CHLORIDE 1,000 ML ONE (11:56)
[2017-12-02] MEDS ORDERED: NICARDIPINE HCL SOLN 10 ML ONE (12:05)
[2017-12-02] MEDS: NITROGLYCERIN/D5W 200 MCG/ML 250 ML IV SCH (12:30)
[2017-12-02] MEDS ORDERED: ESMOLOL HCL 100MG/10ML 10 MG/ML VIAL ONE ×3 (12:45→20:11)
[2017-12-02] MEDS ORDERED: NOREPINEPHRINE INJ 4MG/4ML 4 ML IV SCH (12:45)
[2017-12-02] MEDS ORDERED: NICARDIPINE HCL SOLN 10 ML IV ONE (12:45)
[2017-12-02] MEDS ORDERED: INSULIN REGULAR, HUMAN 100 UNIT/1 ML 3ML VIAL ONE (12:47)
[2017-12-02] MEDS ORDERED: SODIUM CHLORIDE 0.9% 100 ML 100 ML ONE (16:43)
[2017-12-02] MEDS ORDERED: MORPHINE SULFATE 5 MG/ML VIAL IV PRN (17:00)
[2017-12-02] MEDS ORDERED: NOREPINEPHRINE 8 MG/D5W 250 ML 250 ML IV PRN (17:00)
[2017-12-02] MEDS ORDERED: MORPHINE SULFATE INJ 4 MG/ML INJ IV PRN (17:15)
[2017-12-02] MEDS ORDERED: MIDAZOLAM HCL 2 MG/2 ML VIAL ONE (17:23)
[2017-12-02] MEDS ORDERED: FENTANYL CITRATE/PF 100MCG/2 ML INJ ONE (17:23)
[2017-12-02] MEDS ORDERED: DEXAMETHASONE SOD PHOS INJ 4 MG/ML VIAL ONE (20:11)
[2017-12-02] MEDS ORDERED: VASOPRESSIN INJ 20 UNIT/ML VIAL ONE (20:11)
[2017-12-02] MEDS ORDERED: LIDOCAINE HCL 2% LOCAL INJ 5 ML SDV VIAL INJ ONE (20:11)
[2017-12-02] MEDS ORDERED: GLYCOPYRROLATE INJ 1MG/ 5 ML SYR ONE (20:11)
[2017-12-02] MEDS ORDERED: ONDANSETRON HCL INJ 2 MG/ML VIAL ONE (20:11)
[2017-12-02] MEDS ORDERED: ROCURONIUM BROMIDE 10 MG/ML 5ML VIAL ONE (20:11)
[2017-12-02] MEDS ORDERED: SEVOFLURANE INHAL SOLN 250 ML PEN BTL ONE (20:11)
[2017-12-02] MEDS ORDERED: PROPOFOL IV EMULSION 10 MG/ML 20 ML VIAL ONE (20:11)
[2017-12-02] MEDS ORDERED: NEOSTIGMINE 5 MG/5ML SYR ONE (20:11)
[2017-12-02] MEDS ORDERED: LACTATED RINGER'S 500 ML IV SCH (21:30)
[2017-12-02] MEDS: MORPHINE SULFATE INJ 4 MG/ML INJ IV PRN (22:00)
[2017-12-03] VITALS (102 sets, daily range): BP systolic 84–123; BP diastolic 49–78
[2017-12-03] MEDS: SODIUM CHLORIDE 0.9% 1000ML 1,000 ML IV SCH ×3 (00:04→18:33)
[2017-12-03 04:56] LABS: BASOPHILS % 0.1 % (0.0-1.0); HEMATOCRIT 28.7 % (38.2-49.6); HEMOGLOBIN 10.3 g/dL (14.0-18.0); LYMPHOCYTES # (AUTO) 0.9 (1.0-3.2); LYMPHOCYTES % 6.4 % (18.0-39.1); MEAN CORPUSCULAR HEMOGLOBIN 33.6 pg (28-32); MEAN CORPUSCULAR HGB CONC 35.9 g/dL (31-35); MEAN CORPUSCULAR VOLUME 93.5 fL (81-99); MONOCYTES # (AUTO) 0.9 (0.2-0.8); MONOCYTES % 6.5 % (4.4-11.3); NEUTROPHILS # (AUTO) 11.9 (2.1-6.9); NEUTROPHILS % 86.6 % (38.7-80.0); PLATELET COUNT 180 x10e3/uL (140-360); RED BLOOD COUNT 3.07 x10e6/uL (4.3-5.7); RED CELL DISTRIBUTION WIDTH 12.1 % (11.7-14.4)
[2017-12-03] MEDS: MORPHINE SULFATE INJ 4 MG/ML INJ IV PRN ×5 (05:00→23:45)
[2017-12-03 05:20] LABS: ALANINE AMINOTRANSFERASE 116 IU/L (0-55); ALBUMIN 2.8 g/dL (3.5-5.0); ALBUMIN/GLOBULIN RATIO 1.1 (0.8-2.0); ALKALINE PHOSPHATASE 100 IU/L (40-150); ANION GAP 10.5 mmol/L (8-16); BLOOD UREA NITROGEN 9 mg/dL (7-26); BUN/CREATININE RATIO 13 (6-25); CALCIUM 8.1 mg/dL (8.4-10.2); CARBON DIOXIDE 25 mmol/L (22-29); CHLORIDE 104 mmol/L (98-107); CREATININE, SERUM 0.68 mg/dL (0.72-1.25); EST GLOMERULAR FILTRATION RATE > 60 ML/MIN (60-); GLUCOSE 146 mg/dL (74-118); POTASSIUM 3.5 mmol/L (3.5-5.1); SODIUM 136 mmol/L (136-145)
[2017-12-03] MEDS: INSULIN LISPRO 100 UNIT/1 ML 3ML VIAL SQ SCH ×4 (06:09→20:59)
[2017-12-03] MEDS: GLIMEPIRIDE 2 MG TAB PO SCH ×2 (08:34→17:00)
[2017-12-03] MEDS: DOXAZOSIN MESYLATE 2 MG TAB PO SCH ×2 (08:34→17:00)
--- NOTE | 2017-12-03 10:01 | Operative Report ---
DATE OF PROCEDURE: December 02, 2017 PREOPERATIVE DIAGNOSIS: Right adrenal tumor. POSTOPERATIVE DIAGNOSIS: Right adrenal tumor. OPERATIVE PROCEDURE: Laparoscopic-assisted right adrenalectomy. ANESTHESIA: General, Dr. Ventura. INDICATION: The patient is a 52-year-old male with history of poorly controlled hypertension and was found to have a right adrenal mass with elevated urinary metanephrine and VMA suggestive of pheochromocytoma. Patient has been premedicated with alpha antagonist in preparation for the right adrenalectomy for possible pheochromocytoma. DESCRIPTION: The patient was brought to the OR, intubated, in supine position. He received an arterial line and IV hydration per Anesthesia. He was then repositioned to the left lateral decubitus with the right side up. Intraperitoneal access was carried out in the supraumbilical incision. Insufflation was then begun. Under direct vision other port sites were placed in the subcostal area starting at the anterior axillary line, midclavicular line and subxiphoid area. The gallbladder was noted to be covered with adhesions, and this was lysed using the LigaSure instrument to remove the omentum from the gallbladder. We then inserted a fan retractor through the subxiphoid port site to lift the gallbladder and liver superiorly. The triangular ligament attachment of the right lobe of the liver to the retroperitoneal was incised using the cautery, working lateral medially towards the superior vena cava. We then proceeded to mobilize the duodenum medially along the lateral border of the duodenum. The vena cava was then identified, and dissection was then carried out on the lateral border of the vena cava, attaching the adrenal tumor which is noted to be quite large. Dissection was carried out superiorly to the caudate lobe of the liver, which was noted to be quite large. With additional retraction on the caudate lobe, we exposed the right adrenal vein. At this point, due to the large size of the tumor and to ensure adequate control of the adrenal vein, we proceeded to convert to open with the right subcostal incision connecting all the separate port sites. The anterior fascia was then incised, and the rectus and oblique muscles were divided with cautery, taking care of the epigastric blood vessel with the LigaSure. The peritoneal cavity was entered. We then proceeded to identify the right adrenal vein under the caudate lobe, and it was controlled with an endo GI stapler vascular load. The inferior and lateral aspect of the right adrenal tumor was then from the underlying kidney through the Gerota fascia using the LigaSure instrument. The last attachment was the superior medial aspect end of the caudate lobe, which was also controlled with the LigaSure instrument. Tumor delivered out of the field, which was then irrigated with copious saline solution. Hemostasis achieved. Surgicel was placed in the bed of the adrenal tumor to ensure hemostasis. A 19-Occitan Johnathon drain was placed in the retroperitoneal area at the area of the tumor formerly and taken out through a separate stab wound incision in the right lower quadrant. We then closed the abdomen by approximating the posterior fascia with running 0 Vicryl and the anterior fascia with running 0 PDS and the skin with sidra. The patient was then transported in guarded condition after extubation to the recovery room. Estimated blood loss 50 mL. Job#: [id number] EV
[2017-12-03] MEDS ORDERED: POTASSIUM CHLORIDE 10 MEQ TABCR PO ONE (12:15)
[2017-12-03] MEDS: NITROGLYCERIN/D5W 200 MCG/ML 250 ML IV SCH (12:30)
[2017-12-04] VITALS (93 sets, daily range): BP systolic 82–133; BP diastolic 45–118
[2017-12-04] MEDS: SODIUM CHLORIDE 0.9% 1000ML 1,000 ML IV SCH ×3 (02:37→23:56)
[2017-12-04 04:41] LABS: BASOPHILS % 0.2 % (0.0-1.0); EOSINOPHILS % 0.3 % (0.0-6.0); HEMATOCRIT 29.4 % (38.2-49.6); HEMOGLOBIN 10.3 g/dL (14.0-18.0); LYMPHOCYTES # (AUTO) 1.1 (1.0-3.2); LYMPHOCYTES % 11.3 % (18.0-39.1); MEAN CORPUSCULAR HEMOGLOBIN 33.4 pg (28-32); MEAN CORPUSCULAR VOLUME 95.5 fL (81-99); MONOCYTES # (AUTO) 0.7 (0.2-0.8); MONOCYTES % 7.1 % (4.4-11.3); NEUTROPHILS % 80.8 % (38.7-80.0); PLATELET COUNT 166 x10e3/uL (140-360); RED BLOOD COUNT 3.08 x10e6/uL (4.3-5.7); RED CELL DISTRIBUTION WIDTH 12.4 % (11.7-14.4)
[2017-12-04 05:12] LABS: ALANINE AMINOTRANSFERASE 106 IU/L (0-55); ALBUMIN 2.7 g/dL (3.5-5.0); ALKALINE PHOSPHATASE 98 IU/L (40-150); ANION GAP 9.6 mmol/L (8-16); BLOOD UREA NITROGEN 6 mg/dL (7-26); BUN/CREATININE RATIO 9 (6-25); CALCIUM 8.4 mg/dL (8.4-10.2); CARBON DIOXIDE 26 mmol/L (22-29); CHLORIDE 106 mmol/L (98-107); CREATININE, SERUM 0.64 mg/dL (0.72-1.25); EST GLOMERULAR FILTRATION RATE > 60 ML/MIN (60-); GLUCOSE 75 mg/dL (74-118); POTASSIUM 3.6 mmol/L (3.5-5.1); SODIUM 138 mmol/L (136-145)
[2017-12-04] MEDS: INSULIN LISPRO 100 UNIT/1 ML 3ML VIAL SQ SCH ×4 (07:30→21:00)
[2017-12-04] MEDS: DOXAZOSIN MESYLATE 2 MG TAB PO SCH (09:00)
[2017-12-04] MEDS: NITROGLYCERIN/D5W 200 MCG/ML 250 ML IV SCH (12:30)
[2017-12-04] MEDS: ACETAMINOPHEN 325 MG TAB PO PRN (12:53)
[2017-12-04] MEDS: GLIMEPIRIDE 2 MG TAB PO SCH (17:00)
[2017-12-05] VITALS (78 sets, daily range): BP systolic 104–136; BP diastolic 62–100
[2017-12-05] MEDS: ACETAMINOPHEN 325 MG TAB PO PRN (03:07)
[2017-12-05 05:05] LABS: BASOPHILS % 0.3 % (0.0-1.0); EOSINOPHILS # (AUTO) 0.1 (0.0-0.4); EOSINOPHILS % 0.6 % (0.0-6.0); HEMATOCRIT 29.4 % (38.2-49.6); HEMOGLOBIN 10.1 g/dL (14.0-18.0); LYMPHOCYTES # (AUTO) 1.1 (1.0-3.2); LYMPHOCYTES % 12.3 % (18.0-39.1); MEAN CORPUSCULAR HEMOGLOBIN 32.9 pg (28-32); MEAN CORPUSCULAR HGB CONC 34.4 g/dL (31-35); MEAN CORPUSCULAR VOLUME 95.8 fL (81-99); MONOCYTES # (AUTO) 0.7 (0.2-0.8); MONOCYTES % 7.7 % (4.4-11.3); NEUTROPHILS # (AUTO) 6.8 (2.1-6.9); NEUTROPHILS % 78.8 % (38.7-80.0); PLATELET COUNT 185 x10e3/uL (140-360); RED BLOOD COUNT 3.07 x10e6/uL (4.3-5.7); RED CELL DISTRIBUTION WIDTH 12.4 % (11.7-14.4)
[2017-12-05 05:47] LABS: ALANINE AMINOTRANSFERASE 72 IU/L (0-55); ALBUMIN 2.6 g/dL (3.5-5.0); ALBUMIN/GLOBULIN RATIO 0.9 (0.8-2.0); ALKALINE PHOSPHATASE 107 IU/L (40-150); ANION GAP 11.5 mmol/L (8-16); BLOOD UREA NITROGEN 7 mg/dL (7-26); BUN/CREATININE RATIO 10 (6-25); CALCIUM 8.4 mg/dL (8.4-10.2); CARBON DIOXIDE 24 mmol/L (22-29); CHLORIDE 106 mmol/L (98-107); CREATININE, SERUM 0.67 mg/dL (0.72-1.25); EST GLOMERULAR FILTRATION RATE > 60 ML/MIN (60-); GLUCOSE 125 mg/dL (74-118); POTASSIUM 3.5 mmol/L (3.5-5.1); SODIUM 138 mmol/L (136-145)
[2017-12-05] MEDS: SODIUM CHLORIDE 0.9% 1000ML 1,000 ML IV SCH (06:45)
[2017-12-05] MEDS: INSULIN LISPRO 100 UNIT/1 ML 3ML VIAL SQ SCH ×4 (07:30→20:32)
[2017-12-05] MEDS ORDERED: POTASSIUM CHLORIDE 20 MEQ TAB CR PO ONE (08:32)
[2017-12-05] MEDS ORDERED: POTASSIUM CHLORIDE 20 MEQ TAB CR PO STA (08:32)
[2017-12-05] MEDS: GLIMEPIRIDE 2 MG TAB PO SCH ×2 (08:45→18:08)
[2017-12-05] MEDS: NITROGLYCERIN/D5W 200 MCG/ML 250 ML IV SCH (12:30)
[2017-12-06] VITALS (8 sets, daily range): BP systolic 105–166; BP diastolic 57–69
[2017-12-06 05:09] LABS: BASOPHILS % 0.3 % (0.0-1.0); EOSINOPHILS # (AUTO) 0.1 (0.0-0.4); HEMATOCRIT 31.2 % (38.2-49.6); HEMOGLOBIN 11.2 g/dL (14.0-18.0); LYMPHOCYTES # (AUTO) 1.7 (1.0-3.2); LYMPHOCYTES % 17.6 % (18.0-39.1); MEAN CORPUSCULAR HEMOGLOBIN 33.6 pg (28-32); MEAN CORPUSCULAR HGB CONC 35.9 g/dL (31-35); MEAN CORPUSCULAR VOLUME 93.7 fL (81-99); MONOCYTES # (AUTO) 0.7 (0.2-0.8); MONOCYTES % 7.6 % (4.4-11.3); NEUTROPHILS # (AUTO) 6.9 (2.1-6.9); NEUTROPHILS % 73.1 % (38.7-80.0); PLATELET COUNT 229 x10e3/uL (140-360); RED BLOOD COUNT 3.33 x10e6/uL (4.3-5.7); RED CELL DISTRIBUTION WIDTH 12.4 % (11.7-14.4)
[2017-12-06] MEDS: ACETAMINOPHEN 325 MG TAB PO PRN (05:11)
[2017-12-06 05:28] LABS: ALANINE AMINOTRANSFERASE 58 IU/L (0-55); ALBUMIN 2.9 g/dL (3.5-5.0); ALBUMIN/GLOBULIN RATIO 0.9 (0.8-2.0); ALKALINE PHOSPHATASE 126 IU/L (40-150); ANION GAP 11.7 mmol/L (8-16); BLOOD UREA NITROGEN 6 mg/dL (7-26); BUN/CREATININE RATIO 9 (6-25); CALCIUM 9.2 mg/dL (8.4-10.2); CARBON DIOXIDE 25 mmol/L (22-29); CHLORIDE 105 mmol/L (98-107); EST GLOMERULAR FILTRATION RATE > 60 ML/MIN (60-); GLUCOSE 81 mg/dL (74-118); POTASSIUM 3.7 mmol/L (3.5-5.1); SODIUM 138 mmol/L (136-145)
[2017-12-06] MEDS: INSULIN LISPRO 100 UNIT/1 ML 3ML VIAL SQ SCH ×4 (07:30→21:00)
[2017-12-06] MEDS: GLIMEPIRIDE 2 MG TAB PO SCH ×2 (08:54→17:42)
[2017-12-07] VITALS: BP 120/55
[2017-12-07 04:00] VITALS: BP 99/54
[2017-12-07] MEDS: ACETAMINOPHEN 325 MG TAB PO PRN ×2 (04:07→11:04)
[2017-12-07 08:09] VITALS: BP 93/51
[2017-12-07] MEDS: GLIMEPIRIDE 2 MG TAB PO SCH ×2 (08:29→17:14)
[2017-12-07] MEDS: INSULIN LISPRO 100 UNIT/1 ML 3ML VIAL SQ SCH ×2 (08:30→12:45)
[2017-12-07 11:20] VITALS: BP 93/51
[2017-12-07] MEDS ORDERED: MAGNESIUM HYDROXIDE 30 ML UDC PO NR (11:45)
[2017-12-07] MEDS ORDERED: AMARYL1 MG PO (11:46)
[2017-12-07 11:57] VITALS: BP 92/52
--- NOTE | 2017-12-07 12:36 | Discharge Summary ---
ADMIT DIAGNOSES 1. Atypical chest pain. 2. Hypertensive heart disease. 3. Pheochromocytoma. 4. Type 2 diabetes mellitus. DISCHARGE DIAGNOSES 1. Status post right adrenalectomy because of pheochromocytoma. 2. Hypertensive heart disease. 3. Type 2 diabetes mellitus. 4. Atypical chest pain, resolved. HOSPITAL COURSE: This 52-year-old man was initially admitted to [facility] with diagnosis of atypical chest pain and elevated blood pressure. The patient was found to have a right adrenal tumor which later was diagnosed as pheochromocytoma. The patient was seen by assistant track and field coach during this hospitalization, namely Dr. Skelton. During this hospitalization, the patient was seen by a general surgeon, namely Dr. Lenore Pineda, who performed successful right adrenalectomy. The patient's hospitalization was unremarkable. The patient's condition on discharge is stable. The patient's blood pressure normalized during this hospitalization. DISCHARGE MEDICATIONS: 1. Amaryl 1 mg b.i.d. 2. Senna 1 b.i.d. 3. Levemir 10 units daily. 4. Tylenol 650 one pill twice daily p.r.n. for pain. 5. Tylenol #3 one pill q 6 hours p.r.n. for pain. FOLLOWUP INSTRUCTIONS: The patient is instructed to follow up with Dr. Lenore Pineda in one week and with his primary care physician, namely Dr. Srini Reich, in two weeks. Job#: [id number] GH cc: SRINI REICH MD cc: LENORE PINEDA M.D. cc: CHRISTIE MORROW MD cc: MD ANISA MARR
[2017-12-07] MEDS ORDERED: TYLENOL WITH C1 EACH PO (15:04)
[2017-12-07] MEDS ORDERED: SENNA LAX8.6 MG (15:12)
[2017-12-07 16:27] VITALS: BP 96/51
== END 2017-12-07 17:15 | disposition home or self-care (01) | DRG 615 ==
LOC: ER 12:36 → ERHOLD 16:38 → MED/SURG2 17:09 → OBSVTOIN 18:17 → ICU 12-02 17:53 → MED/SURG 12-05 21:23
PROC: 0GB30ZZ Excision of Right Adrenal Gland, Open Approach (ICD-10-PCS; principal; 2017-12-02 12:03)
DX: D35.01 Benign neoplasm of right adrenal gland (principal); R07.89 Other chest pain; I11.9 Hypertensive heart disease without heart failure; E11.65 Type 2 diabetes mellitus with hyperglycemia; K21.9 Gastro-esophageal reflux disease without esophagitis; Z87.891 Personal history of nicotine dependence
CPT/HCPCS: 36415; 71045; 80048; 80053; 80061; 82550; 82553; 82948; 83036; 84439; 84443; 84484; 85025; 85610; 85730; 86850; 86900; 86920; 88307; 88331; 93005; 96372; 99284; J1100; J1200; J2001; J2250; J2270; J2405; J7030; J7120

== ENCOUNTER 2018-12-20 14:17 | Inpatient (IN) | payer BC ==
[~2018-12-20] VITALS: Ht 177.8 cm; Wt 77.1 kg
[~2018-12-20 14:17] MED LIST changes: +AMARYL1 MG PO; +ATENOLOL50 MG; +LOSARTAN POTAS100 MG PO; +SENNA LAX8.6 MG; +TYLENOL WITH C1 EACH PO
[2018-12-20 14:58] LABS: BASOPHILS # (AUTO) 0.1 (0.0-0.1); BASOPHILS % 0.6 % (0.0-1.0); EOSINOPHILS # (AUTO) 0.1 (0.0-0.4); EOSINOPHILS % 1.1 % (0.0-6.0); HEMATOCRIT 40.2 % (38.2-49.6); HEMOGLOBIN 14.5 g/dL (14.0-18.0); LYMPHOCYTES % 22.7 % (18.0-39.1); MEAN CORPUSCULAR HEMOGLOBIN 34.1 pg (28-32); MEAN CORPUSCULAR HGB CONC 36.1 g/dL (31-35); MEAN CORPUSCULAR VOLUME 94.6 fL (81-99); MONOCYTES # (AUTO) 0.6 (0.2-0.8); MONOCYTES % 7.2 % (4.4-11.3); NEUTROPHILS # (AUTO) 6.1 (2.1-6.9); NEUTROPHILS % 68.1 % (38.7-80.0); PLATELET COUNT 178 x10e3/uL (140-360); RED BLOOD COUNT 4.25 x10e6/uL (4.3-5.7); RED CELL DISTRIBUTION WIDTH 11.9 % (11.7-14.4)
[2018-12-20 15:09] LABS: INR 0.98; PROTHROMBIN TIME 13.5 seconds (11.9-14.5)
[2018-12-20 15:10] LABS: PARTIAL THROMBOPLASTIN TIME 36.7 seconds (23.8-35.5)
[2018-12-20 15:16] LABS: ALANINE AMINOTRANSFERASE 36 IU/L (0-55); ALBUMIN/GLOBULIN RATIO 1.3 (0.8-2.0); ALKALINE PHOSPHATASE 128 IU/L (40-150); ANION GAP 14.2 mmol/L (8-16); BLOOD UREA NITROGEN 12 mg/dL (7-26); BUN/CREATININE RATIO 15 (6-25); CALCIUM 9.3 mg/dL (8.4-10.2); CARBON DIOXIDE 24 mmol/L (22-29); CHLORIDE 107 mmol/L (98-107); CREATINE KINASE 72 IU/L (30-200); CREATININE, SERUM 0.78 mg/dL (0.72-1.25); EST GLOMERULAR FILTRATION RATE > 60 ML/MIN (60-); GLUCOSE 104 mg/dL (74-118); POTASSIUM 4.2 mmol/L (3.5-5.1); SODIUM 141 mmol/L (136-145)
--- NOTE | 2018-12-20 15:22 | Diagnostic Imaging Report ---
CT BRAIN WO HISTORY: Blurry vision COMPARISON: None. TECHNIQUE: Noncontrast axial scans were obtained from skull base to the vertex. Coronal and sagittal reconstructions obtained from the axial data. One or more of the following dose reduction techniques were used: Automated exposure control, adjustment of the mA and/or kV according to patient size, and/or utilization of iterative reconstruction technique. DISCUSSION: Scalp/Skull: Unremarkable. Brain sulci: Appropriate for patient's age. Ventricles: Normal in size and configuration. No hydrocephalus. Extra-axial spaces: No masses or fluid collections. Carotid siphon calcifications are present. Parenchyma: No abnormal densities. No mass, hemorrhage, or large vascular territory acute infarct. Dural sinuses: No abnormal densities. Sellar/Suprasellar region: Intact. Skull base: Intact. Incidental findings: None. IMPRESSION: No acute intracranial abnormalities. Signed by: Dr. Wilbert Ortiz M.D. on 12/20/2018 3:19 PM
[2018-12-20] MEDS ORDERED: ASPIRIN 325 MG TAB PO NR (16:30)
[2018-12-20] MEDS ORDERED: DEXTROSE 50% SYRINGE 50 ML IV PRN (16:30)
--- NOTE | 2018-12-20 16:35 | NUR ---
MEAL TRAY ORDERED. DR. BECK CONSULTING AN OPTHAMOLOGIST FAMILY AT BEDSIDE UPDATED
[2018-12-20] MEDS ORDERED: ASPIRIN 81 MG CHEW TAB PO ONE (17:00)
[2018-12-20] MEDS: INSULIN REGULAR, HUMAN 100 UNIT/1 ML 3ML VIAL SQ SCH ×2 (17:09→21:00)
--- NOTE | 2018-12-20 17:10 | NUR ---
PATIENT SITTING UP EATING DINNER
[2018-12-20] MEDS ORDERED: GADOBENATE DIMEGLUMINE 1 ML IV ONE (17:32)
[2018-12-20 18:19] VITALS: BP 121/64
[2018-12-20 18:25] VITALS: BP 121/64
--- NOTE | 2018-12-20 18:31 | Diagnostic Imaging Report ---
MRI BRAIN WOW HISTORY: Left eye vision loss COMPARISON: Head CT 12/20/2018 TECHNIQUE: Multiplanar, multisequence MRI of the brain (including diffusion-weighted imaging) was performed before and after the administration of intravenous, gadolinium based contrast. 15 mL of MultiHance were administered. Motion artifacts obscure some details. DISCUSSION: Scalp/bone marrow: Nonspecific small focal area of subcutaneous magnetic susceptibility in the right parietal scalp may be due to scarring, calcification, or small foreign body. Otherwise, unremarkable. Brain sulci: Appropriate for patient's age. Ventricles: Normal in size and configuration. No hydrocephalus. Extra-axial spaces: No masses or fluid collections. Parenchyma: No definite abnormal signal intensities. No mass, hemorrhage, or acute vascular insults. No abnormal parenchymal, leptomeningeal, or dural enhancement is seen. Vessels: Normal flow voids in major arteries and veins. Sellar/Suprasellar region: No abnormalities. Craniocervical junction: No abnormalities. Incidental findings: None. IMPRESSION: No acute intracranial abnormalities. Signed by: Dr. Wilbert Ortiz M.D. on 12/20/2018 6:28 PM
[2018-12-20 19:20] VITALS: BP 111/63
[2018-12-20 20:00] VITALS: BP 111/63
--- NOTE | 2018-12-20 20:37 | NUR ---
SPOKE TO DR. CHAIDEZ AT THIS TIME REGARDING STAT CAROTID DOPPLER. SAID IT'S OK TO DO THE CAROTID DOPPLER TOMORROW.
[2018-12-20 23:27] LABS: CREATINE KINASE 53 IU/L (30-200)
[2018-12-21 00:05] VITALS: BP 100/56
[2018-12-21 04:15] VITALS: BP 105/65
--- NOTE | 2018-12-21 07:23 | NUR ---
Rcvd patient in report this am. Patient is asleep in bed at this time. No s/s of distress noted
[2018-12-21] MEDS: INSULIN REGULAR, HUMAN 100 UNIT/1 ML 3ML VIAL SQ SCH ×2 (07:30→11:30)
[2018-12-21 08:14] VITALS: BP 101/62
[2018-12-21] MEDS ORDERED: ASPIRIN 325 MG TAB EC PO SCH (09:00)
[2018-12-21 09:08] VITALS: BP 101/62
[2018-12-21 09:15] LABS: CREATINE KINASE 45 IU/L (30-200)
--- NOTE | 2018-12-21 11:33 | NUR ---
Patient is AAOx3. Chinese speaking mostly. Lung broussard clear to auscultation. Bowel sounds present x4. No edema noted. No c/o chest pain. Some blurred vision in left eye. No s/s of distress noted
[2018-12-21 11:57] VITALS: BP 105/63
--- NOTE | 2018-12-21 12:00 | NUR ---
IV removed at this time. Pressure dressing applied.
--- NOTE | 2018-12-21 12:02 | Discharge Summary ---
FINAL DIAGNOSES: 1. Vision loss of the left eye. 2. History of right eye visual problem. 3. Baseline diabetes type 2, and not yet have an eye exam. SUMMARY: The patient is a 53-year-old male who has visual problem gradually, but when he woke up he having problem with his left eye vision. He did have some visual loss in the right eye previously, but he did not see any eye doctor. The patient had diabetes type 2, on oral hypoglycemic medication. He has diabetes for years, but have not have any Ophthalmology examination. MRI of the brain is negative for any stroke. CT scan is negative. His ocular motor function is normal. The general examination of the eye by light showed that there may have evidence of developing cataract. The patient will need to have his eye exam. Discussed with the patient at length. The patient may follow up tomorrow Saturday and we will refer the patient to the replenishment analyst for an examination. Again, the patient has no pain, no pressure, no sign of infection of both eyes. There is visual losses history. There is diabetic history. The patient may follow up for an Ophthalmology examination referral. MD AKIKO Rock/ADOLFO /[id number]
--- NOTE | 2018-12-21 12:09 | NUR ---
Patient discharged from facility to home, Patient assisted out via staff. reviewed all discharge instructions, follow up appts, no RX's needed. Reviewed all instructions with spouse as well.
== END 2018-12-21 12:14 | disposition home or self-care (01) | DRG 123 ==
LOC: ER 14:17 → ERHOLD 16:49 → MED/SURG 17:18
PROVIDERS: ADMIT Internal Medicine; ATTEND Internal Medicine
DX: H53.482 Generalized contraction of visual field, left eye (principal); H53.8 Other visual disturbances; I10 Essential (primary) hypertension; E11.9 Type 2 diabetes mellitus without complications; Z79.84 Long term (current) use of oral hypoglycemic drugs; H54.62 Unqualified visual loss, left eye, normal vision right eye
CPT/HCPCS: 36415; 70450; 70553; 80053; 82550; 82553; 82948; 84484; 85025; 85610; 85730; 93005; 93306; 93880; 99284

== ENCOUNTER → 2020-03-07 | Outpatient (CLI) | payer BC ==
[2020-03-07 07:39] LABS: ALANINE AMINOTRANSFERASE 17 IU/L (0-55); ALBUMIN 3.9 g/dL (3.5-5.0); ALBUMIN/GLOBULIN RATIO 1.3 (0.8-2.0); ALKALINE PHOSPHATASE 102 IU/L (40-150); ANION GAP 14.6 mmol/L (8-16); BLOOD UREA NITROGEN 15 mg/dL (7-26); BUN/CREATININE RATIO 12 (6-25); CALCIUM 8.9 mg/dL (8.4-10.2); CARBON DIOXIDE 25 mmol/L (22-29); CHLORIDE 105 mmol/L (98-107); CREATININE, SERUM 1.22 mg/dL (0.72-1.25); EST GLOMERULAR FILTRATION RATE > 60 ML/MIN (60-); GLUCOSE 93 mg/dL (74-118); POTASSIUM 4.6 mmol/L (3.5-5.1); SODIUM 140 mmol/L (136-145)
== END ==
LOC: LAB 06:54
PROVIDERS: ATTEND Internal Medicine Endocrinology, Diabetes & Metabolism
DX: E11.65 Type 2 diabetes mellitus with hyperglycemia (principal); D35.01 Benign neoplasm of right adrenal gland
CPT/HCPCS: 36415; 80053; 83036; 83835; 84585

== ENCOUNTER 2020-05-14 11:25 | Inpatient (IN) | payer BC, OTHER ==
[~2020-05-14] VITALS: Ht 167.6 cm; Wt 73.5 kg
[2020-05-14 12:56] LABS: BASOPHILS % 0.5 % (0.0-1.0); EOSINOPHILS # (AUTO) 0.1 (0.0-0.4); EOSINOPHILS % 0.9 % (0.0-6.0); HEMATOCRIT 44.4 % (38.2-49.6); HEMOGLOBIN 15.1 g/dL (14.0-18.0); LYMPHOCYTES # (AUTO) 1.3 (1.0-3.2); LYMPHOCYTES % 20.3 % (18.0-39.1); MEAN CORPUSCULAR HEMOGLOBIN 33.2 pg (28-32); MEAN CORPUSCULAR VOLUME 97.6 fL (81-99); MONOCYTES # (AUTO) 0.5 (0.2-0.8); MONOCYTES % 8.4 % (4.4-11.3); NEUTROPHILS # (AUTO) 4.5 (2.1-6.9); NEUTROPHILS % 69.6 % (38.7-80.0); PLATELET COUNT 142 x10e3/uL (140-360); RED BLOOD COUNT 4.55 x10e6/uL (4.3-5.7); RED CELL DISTRIBUTION WIDTH 12.3 % (11.7-14.4)
[2020-05-14 13:17] LABS: ALANINE AMINOTRANSFERASE 20 IU/L (0-55); ALBUMIN 3.8 g/dL (3.5-5.0); ALBUMIN/GLOBULIN RATIO 1.1 (0.8-2.0); ALKALINE PHOSPHATASE 97 IU/L (40-150); BLOOD UREA NITROGEN 14 mg/dL (7-26); BUN/CREATININE RATIO 17 (6-25); CALCIUM 8.9 mg/dL (8.4-10.2); CARBON DIOXIDE 25 mmol/L (22-29); CHLORIDE 108 mmol/L (98-107); CREATINE KINASE 53 IU/L (30-200); CREATININE, SERUM 0.81 mg/dL (0.72-1.25); EST GLOMERULAR FILTRATION RATE > 60 ML/MIN (60-); GLUCOSE 98 mg/dL (74-118); SODIUM 140 mmol/L (136-145)
[2020-05-14] MEDS ORDERED: ASPIRIN 81 MG CHEW TAB PO ONE (15:00)
[2020-05-14 17:27] VITALS: BP 133/78
[2020-05-14] MEDS ORDERED: HYDRALAZINE HCL 20 MG/ML VIAL IV PRN (18:00)
[2020-05-14] MEDS ORDERED: ONDANSETRON HCL INJ 2MG/ML 2ML 2 MG/ML VIAL IV PRN (18:00)
[2020-05-14] MEDS ORDERED: ACETAMINOPHEN 325 MG TAB PO PRN (18:00)
[2020-05-14] MEDS ORDERED: DEXTROSE 50% SYRINGE 50 ML IV PRN (18:00)
[2020-05-14] MEDS ORDERED: SODIUM CHLORIDE 0.9% 50ML 100 ML ONE (18:38)
[2020-05-14] MEDS ORDERED: IOPAMIDOL 370 MG/ML 200 ML INFUS..BTL INJ ONE (18:38)
[2020-05-14 20:00] VITALS: BP 146/72
[2020-05-14 20:11] VITALS: BP 146/72
[2020-05-14] MEDS: INSULIN LISPRO 100 UNIT/1 ML 3ML VIAL SQ SCH (20:51)
[2020-05-14] MEDS ORDERED: CLOPIDOGREL BISULFATE 75 MG TAB PO ONE (21:45)
[2020-05-14 22:12] LABS: CREATINE KINASE MB 0.7 ng/mL (0-5.0)
[2020-05-14 22:27] LABS: CHOL/HDL RATIO 4.3 (3.9-4.7)
[2020-05-14 22:47] LABS: THYROID STIMULATING HORMONE 1.312 uIU/mL (0.350-4.940)
[2020-05-14 22:53] VITALS: BP 146/72
[2020-05-15] VITALS (8 sets, daily range): BP systolic 103–121; BP diastolic 63–75
[2020-05-15 06:18] LABS: BASOPHILS % 0.4 % (0.0-1.0); EOSINOPHILS # (AUTO) 0.1 (0.0-0.4); EOSINOPHILS % 1.1 % (0.0-6.0); HEMATOCRIT 43.5 % (38.2-49.6); HEMOGLOBIN 14.9 g/dL (14.0-18.0); LYMPHOCYTES # (AUTO) 1.8 (1.0-3.2); LYMPHOCYTES % 24.5 % (18.0-39.1); MEAN CORPUSCULAR HEMOGLOBIN 33.6 pg (28-32); MEAN CORPUSCULAR HGB CONC 34.3 g/dL (31-35); MEAN CORPUSCULAR VOLUME 98.2 fL (81-99); MONOCYTES # (AUTO) 0.6 (0.2-0.8); MONOCYTES % 7.7 % (4.4-11.3); NEUTROPHILS # (AUTO) 4.7 (2.1-6.9); NEUTROPHILS % 65.9 % (38.7-80.0); PLATELET COUNT 150 x10e3/uL (140-360); RED BLOOD COUNT 4.43 x10e6/uL (4.3-5.7)
[2020-05-15 06:58] LABS: ANION GAP 11.7 mmol/L (8-16); BLOOD UREA NITROGEN 15 mg/dL (7-26); BUN/CREATININE RATIO 18 (6-25); CARBON DIOXIDE 23 mmol/L (22-29); CHLORIDE 106 mmol/L (98-107); CREATININE, SERUM 0.83 mg/dL (0.72-1.25); EST GLOMERULAR FILTRATION RATE > 60 ML/MIN (60-); GLUCOSE 95 mg/dL (74-118); POTASSIUM 3.7 mmol/L (3.5-5.1); SODIUM 137 mmol/L (136-145)
[2020-05-15 06:59] LABS: ALANINE AMINOTRANSFERASE 23 IU/L (0-55); ALBUMIN 3.7 g/dL (3.5-5.0); ALBUMIN/GLOBULIN RATIO 1.2 (0.8-2.0); ALKALINE PHOSPHATASE 90 IU/L (40-150); CALCIUM 8.8 mg/dL (8.4-10.2)
[2020-05-15] MEDS: INSULIN LISPRO 100 UNIT/1 ML 3ML VIAL SQ SCH ×4 (07:30→20:48)
[2020-05-15 07:45] LABS: CREATINE KINASE MB 0.1 ng/mL (0-5.0)
[2020-05-15 08:00] LABS: CHOL/HDL RATIO 4.4 (3.9-4.7)
[2020-05-15] MEDS: ASPIRIN 81 MG CHEW TAB PO SCH (08:39)
[2020-05-15] MEDS: FAMOTIDINE 20 MG TAB PO SCH ×2 (08:39→16:30)
[2020-05-15] MEDS: CLOPIDOGREL BISULFATE 75 MG TAB PO SCH (08:40)
[2020-05-15] MEDS ORDERED: ASPIRIN CHEW81 MG PO (08:42)
[2020-05-15] MEDS ORDERED: Atorvastatin PO (08:42)
[2020-05-15] MEDS ORDERED: PLAVIX75 MG PO (08:42)
[2020-05-15 13:44] LABS: THYROID STIMULATING HORMONE 2.005 uIU/mL (0.350-4.940)
[2020-05-15] MEDS ORDERED: ENOXAPARIN SOD INJ 40 MG/0.4 ML SYR SC SCH (17:00)
[2020-05-15] MEDS ORDERED: ATORVASTATIN 40 MG TAB PO SCH (21:00)
[2020-05-16] VITALS: BP 100/57
[2020-05-16 04:00] VITALS: BP 105/63
[2020-05-16] MEDS: INSULIN LISPRO 100 UNIT/1 ML 3ML VIAL SQ SCH ×2 (07:30→11:30)
[2020-05-16 08:30] VITALS: BP 120/66
[2020-05-16] MEDS: ASPIRIN 81 MG CHEW TAB PO SCH (08:38)
[2020-05-16] MEDS: FAMOTIDINE 20 MG TAB PO SCH (08:38)
[2020-05-16] MEDS: CLOPIDOGREL BISULFATE 75 MG TAB PO SCH (08:38)
[2020-05-16 08:47] VITALS: BP 120/66
[2020-05-16 12:15] VITALS: BP 125/75
[2020-05-16] MEDS ORDERED: ONDANSETRON HCL 4 MG ORAL DISINTEGRATING TAB PO PRN (14:00)
[2020-05-17] MEDS ORDERED: SITAGLIPTIN 100 MG TAB PO SCH (09:00)
== END 2020-05-16 16:03 | disposition home health service (06) | DRG 65 ==
LOC: ER 11:36 → ERHOLD 14:48 → MED/SURG 17:11
PROVIDERS: ADMIT Internal Medicine; ATTEND Internal Medicine
DX: I63.9 Cerebral infarction, unspecified (principal); G81.94 Hemiplegia, unspecified affecting left nondominant side; E78.5 Hyperlipidemia, unspecified; E11.9 Type 2 diabetes mellitus without complications
CPT/HCPCS: 36415; 70450; 70496; 70498; 70551; 71045; 80053; 80061; 82550; 82553; 82948; 83036; 84443; 84484; 85025; 85230; 85300; 85597; 85598; 85613; 85651; 85730; 85732; 86146; 86147; 86148; 86849; 93306; 93880; 99284; J1650; Q9967; U0002

== ENCOUNTER 2022-01-21 12:14 | Emergency (ER) | payer BC, OTHER ==
[~2022-01-21] VITALS: Ht 167.6 cm; Wt 73.5 kg
[~2022-01-21 12:14] MED LIST changes: +ASPIRIN CHEW81 MG PO; +Atorvastatin PO; +PLAVIX75 MG PO
[2022-01-21 12:49] LABS: BASOPHILS % 0.5 % (0.0-1.0); EOSINOPHILS % 0.5 % (0.0-6.0); HEMATOCRIT 39.5 % (38.2-49.6); HEMOGLOBIN 13.8 g/dL (14.0-18.0); LYMPHOCYTES # (AUTO) 1.5 (1.0-3.2); LYMPHOCYTES % 18.1 % (18.0-39.1); MEAN CORPUSCULAR HEMOGLOBIN 34.3 pg (28-32); MEAN CORPUSCULAR HGB CONC 34.9 g/dL (31-35); MEAN CORPUSCULAR VOLUME 98.3 fL (81-99); MONOCYTES # (AUTO) 0.6 (0.2-0.8); MONOCYTES % 7.7 % (4.4-11.3); NEUTROPHILS # (AUTO) 5.9 (2.1-6.9); NEUTROPHILS % 73.1 % (38.7-80.0); PLATELET COUNT 170 x10e3/uL (140-360); RED BLOOD COUNT 4.02 x10e6/uL (4.3-5.7); RED CELL DISTRIBUTION WIDTH 11.6 % (11.7-14.4)
[2022-01-21 12:57] LABS: INR 0.96; PROTHROMBIN TIME 13.7 seconds (11.9-14.5)
[2022-01-21 12:58] LABS: PARTIAL THROMBOPLASTIN TIME 33.7 seconds (23.8-35.5)
[2022-01-21 13:05] LABS: ALANINE AMINOTRANSFERASE 26 IU/L (0-55); ALBUMIN 3.9 g/dL (3.5-5.0); ALBUMIN/GLOBULIN RATIO 1.1 (0.8-2.0); ALKALINE PHOSPHATASE 98 IU/L (40-150); ANION GAP 14.8 mmol/L (8-16); BLOOD UREA NITROGEN 15 mg/dL (7-26); BUN/CREATININE RATIO 15 (6-25); CALCIUM 9.1 mg/dL (8.4-10.2); CARBON DIOXIDE 24 mmol/L (22-29); CHLORIDE 100 mmol/L (98-107); CREATINE KINASE 32 IU/L (30-200); CREATININE, SERUM 1.01 mg/dL (0.72-1.25); GLUCOSE 221 mg/dL (74-118); POTASSIUM 3.8 mmol/L (3.5-5.1); SODIUM 135 mmol/L (136-145)
== END 2022-01-21 15:21 | disposition short-term general hospital (02) ==
LOC: ER 12:29
DX: R51.9 Headache, unspecified (principal); S06.5X0D Traumatic subdural hemorrhage without loss of consciousness, subsequent encounter; W18.09XD Striking against other object with subsequent fall, subsequent encounter; E11.65 Type 2 diabetes mellitus with hyperglycemia; G40.909 Epilepsy, unspecified, not intractable, without status epilepticus; Z20.822 Contact with and (suspected) exposure to COVID-19
CPT/HCPCS: 36415; 70450; 70486; 80053; 82550; 82553; 84484; 85025; 85610; 85730; 99284; U0002